=== PATIENT | female | born 1970 | race Hispanic/Latino ===

== ENCOUNTER 2018-07-09 07:27 | Day surgery (SDC) | payer BC ==
[2018-07-07 15:25] VITALS: BP 119/78
[2018-07-07 15:43] LABS: BASOPHILS % (AUTO) 0.8 % (0.0-5.0); EOSINOPHILS % (AUTO) 5.3 % (0.0-8.0); HEMATOCRIT 37.3 % (36-48); LYMPHOCYTES % (AUTO) 23.5 % (21.0-51.0); MEAN CORPUSCULAR HEMOGLOBIN 30.5 pg (27.0-33.0); MEAN CORPUSCULAR HGB CONC 34.6 g/dL (32.0-36.0); MEAN CORPUSCULAR VOLUME 88.1 fL (79-99); MONOCYTES % (AUTO) 7.5 % (3.0-13.0); NEUTROPHILS % (AUTO) 62.9 % (40.0-77.0); PLATELET COUNT (AUTO) 272 K/uL (130-400); RED BLOOD CELL COUNT(AUTO) 4.23 MIL/uL (4.00-5.50); RED CELL DISTRIBUTION WIDTH 14.2 % (11.0-15.5); WHITE BLOOD COUNT (AUTO) 8.9 K/uL (4.8-10.8)
[2018-07-07 15:50] LABS: APPEARANCE,URINE Clear (CLEAR); BILIRUBIN,URINE Negative (NEGATIVE); GLUCOSE, URINE (UA) Negative (NEGATIVE); KETONES,URINE Negative (NEGATIVE); LEUKOCYTE ESTERASE ,URINE Small (NEGATIVE); NITRATE,URINE Negative (NEGATIVE); OCCULT BLOOD,URINE Large (NEGATIVE); PROTEIN,URINE POS 1+ (NEGATIVE)
[2018-07-07 16:28] LABS: COLOR,URINE RED (YELLOW); RBC,URINE >100 /HPF (0-1)
[2018-07-07 16:29] LABS: BACTERIA,URINE Few /HPF (None Seen)
[2018-07-09] VITALS (18 sets, daily range): BP systolic 109–135; BP diastolic 57–86
[~2018-07-09] VITALS: Ht 163.8 cm; Wt 94.4 kg
[~2018-07-09 07:27] MED LIST: CETI10CA5 PO; FAMO40TA7 PO; LOSA50TA64 PO; ROSU5TAB PO
[2018-07-09] MEDS: LACTATED RINGERS 1000ML 1,000 ML IV SCH ×2 (08:05→08:24)
[2018-07-09] MEDS ORDERED: DEXAMETHASONE SOD PHOSPHATE 10MG/ML 1ML VIAL ONE (08:20)
[2018-07-09] MEDS ORDERED: LIDOCAINE PF 2% 5ML ABBOJECT ONE (08:20)
[2018-07-09] MEDS ORDERED: MIDAZOLAM HCL 1 MG/ML 2ML VIAL ONE (08:21)
[2018-07-09] MEDS ORDERED: ONDANSETRON HCL 4 MG/2 ML VIAL ONE (08:21)
[2018-07-09] MEDS ORDERED: SUCCINYLCHOLINE 200MG/10ML SYR ONE (08:21)
[2018-07-09] MEDS ORDERED: FENTANYL CITRATE PF 50 MCG/1 ML 2ML VIAL ONE (08:22)
[2018-07-09] MEDS ORDERED: PROPOFOL 10 MG/ML 20ML VIAL IV ONE (08:22)
[2018-07-09] MEDS ORDERED: GLYCOPYRROLATE 1 MG/5 ML SYRINGE ONE (08:22)
[2018-07-09] MEDS ORDERED: NEOSTIGMINE 5MG/5ML SYR IV ONE (08:22)
[2018-07-09] MEDS ORDERED: ROCURONIUM 10MG/1ML SYR 10 MG/ML ML ONE (08:22)
[2018-07-09] MEDS ORDERED: HEPARIN SODIUM 1000UNIT/ML 10ML VIAL ONE (08:36)
[2018-07-09] MEDS ORDERED: MEPERIDINE-PF 25 MG/ML SYG ONE ×2 (09:41→09:54)
--- NOTE | 2018-07-09 10:35 | NUR ---
NEW PT RECEIVED PATIENT FROM PACU, S/P [employer]. BANDAIDS X [address] TO ABD AREA. DRY AND INTACT, VS STABLE ON ARRIVAL. PT AWAKE AND ALERT.
--- NOTE | 2018-07-09 11:05 | NUR ---
DC DC INSTRUCTIONS GIVEN TO PT BOYFRIEND WITH RX, INSTRUCTED TO F/U WITH DR. MCDANIEL. ENCOURAGE PATIENT TO AMBULATE AT HOME TO RELEASE AIR AND HELP ALLEVIATE PAIN. PT SEEMED HESISTANT ABOUT WALKING, INFORMED ABOUT IMPORTANCE OF AMBULATING . PT VERBALIZED UNDERSTANDING.
--- NOTE | 2018-07-09 11:10 | NUR ---
DC PT DC HOME VIA WC ,NO DISTRESS NOTED. ACCOMPANIED BY SPOUSE
== END 2018-07-09 11:10 | disposition home or self-care (01) ==
LOC: DAH 07:27
PROVIDERS: ATTEND Surgery
DX: K81.1 Chronic cholecystitis (principal); K82.8 Other specified diseases of gallbladder; Z68.35 Body mass index [BMI] 35.0-35.9, adult; E78.5 Hyperlipidemia, unspecified; I10 Essential (primary) hypertension; E66.9 Obesity, unspecified; Z98.51 Tubal ligation status; Z79.899 Other long term (current) drug therapy; Z98.890 Other specified postprocedural states; Z82.49 Family history of ischemic heart disease and other diseases of the circulatory system; Z83.3 Family history of diabetes mellitus; Z80.9 Family history of malignant neoplasm, unspecified
CPT/HCPCS: 36415; 47562; 81001; 85025; 88304; A4450; A4930; C1769 ×4; J0330; J1100; J1644; J2001; J2175 ×2; J2250; J2405; J2704; J2710; J3010; J3490; J7030; J7120 ×2